=== PATIENT | male | born 1980 | race Caucasian/White ===

== ENCOUNTER 2018-10-14 19:53 | Emergency (ER) | payer SELFPAY ==
[~2018-10-14] VITALS: Ht 172.7 cm; Wt 65.0 kg
[~2018-10-14 19:53] MED LIST: ACET500C5 PO
[2018-10-14 19:55] VITALS: BP 133/94; Ht 172.7 cm; Wt 65.0 kg
--- NOTE | 2018-10-14 21:34 | ERD ---
ER Documentation Chief Complaint Chief Complaint DIZZINESS WITH CP AND PALPITATIONS X3DAYS; HPI This is a 38-year-old male patient who presents to the emergency room with complaint of intermittent dizziness, chest pain, heart palpitations x3 days. Denies fevers, no nausea, no vomiting, + sore throat. Patient does not smoke. States he was recently diagnosed with diabetes 2 weeks ago and placed on metformin and other unknown antidiabetic medication. States his diet is primarily bread, tortillas, sandwiches and admits to eating 3-4 times per day and taking his medications with food. He has appointment with his PMD, [facility] [place] tomorrow. Patient is alert, ambulatory, NAD at time of evaluation. ROS All systems reviewed and are negative except as per history of present illness. 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 Allergies Allergies: Coded Allergies: No Known Allergy (Unverified , 10/14/18) PMhx/Soc History of Surgery: No Anesthesia Reaction: No Hx Neurological Disorder: No Hx Respiratory Disorders: No Hx Cardiac Disorders: No Hx Psychiatric Problems: No Hx Miscellaneous Medical Probl: No Hx Alcohol Use: Yes Hx Substance Use: No Hx Tobacco Use: No Smoking Status: Never smoker FmHx Family History: diabetes; No coronary disease, No other Physical Exam Vitals Vital Signs Date Temp Pulse Resp B/P (MAP) Pulse Ox O2 O2 Flow FiO2 Time Delivery Rate 10/15/18 98.0 76 16 99 01:24 10/14/18 99.4 109 18 133/94 96 19:55 (107) Physical Exam Const: No acute distress Head: No bruising, no swelling, no hematoma, no crepitus Eyes: Normal Conjunctiva. PERRL, EOMI ENT: Normal External Ears, Nose and Mouth. Pharynx pink, moist, no oral injury. Neck: Full range of motion. No meningismus. No cervical spinal tenderness. No lymphadenopathy Resp: Clear to auscultation bilaterally, no rales, rhonchi. Chest rise equal bilaterally. Cardio: Regular rate and rhythm, no murmurs Abd: Soft, non tender, non distended. Normal bowel sounds. No bruising. Skin: No petechiae or rashes, no abrasions, no hematomas. Back: No midline or flank tenderness, no point tenderness to spine, FROM Ext: No cyanosis, or edema, no deformities Neur: Awake and alert, CN II-XII intact, steady gait, clear speech, no pronator drift, equal smile, BL piling setter 5/5, sensation intact BL, negative Romberg, negative [id number] test. Psych: Normal Mood and Affect Result Diagram: 10/14/18213610/14/182136 Results 24 hrs Laboratory Tests Test 10/14/18 21:37 White Blood Count 11.1 10^3/ul Red Blood Count 4.93 10^6/ul Hemoglobin 15.2 g/dl Hematocrit 44.3 % Mean Corpuscular Volume 89.9 fl Mean Corpuscular Hemoglobin 30.8 pg Mean Corpuscular Hemoglobin Concent 34.3 g/dl Red Cell Distribution Width 11.3 % Platelet Count 202 10^3/UL Mean Platelet Volume 12.2 fl Immature Granulocytes % 0.400 % Neutrophils % 78.5 % Lymphocytes % 13.8 % Monocytes % 5.9 % Eosinophils % 1.0 % Basophils % 0.4 % Nucleated Red Blood Cells % 0.0 /100WBC Immature Granulocytes # 0.040 10^3/ul Neutrophils # 8.7 10^3/ul Lymphocytes # 1.5 10^3/ul Monocytes # 0.7 10^3/ul Eosinophils # 0.1 10^3/ul Basophils # 0.0 10^3/ul Nucleated Red Blood Cells # 0.0 10^3/ul Urine Color YELLOW Urine Clarity CLEAR Urine pH 6.0 Urine Specific [place] 1.013 Urine Ketones NEGATIVE mg/dL Urine Nitrite NEGATIVE mg/dL Urine Bilirubin NEGATIVE mg/dL Urine Urobilinogen NEGATIVE mg/dL Urine Leukocyte Esterase NEGATIVE Otilia/ul Urine Hemoglobin NEGATIVE mg/dL Urine Glucose 2+ mg/dL Urine Total Protein NEGATIVE mg/dl Sodium Level 138 mmol/L Potassium Level 4.7 mmol/L Chloride Level 98 mmol/L Carbon Dioxide Level 30 mmol/L Anion Gap 10 Blood Urea Nitrogen 17 mg/dl Creatinine 0.67 mg/dl Est Glomerular Filtrat Rate mL/min > 60 mL/min Glucose Level 245 mg/dl Calcium Level 9.9 mg/dl Total Bilirubin 0.4 mg/dl Direct Bilirubin 0.00 mg/dl Indirect Bilirubin 0.4 mg/dl Aspartate Amino Transf (AST/SGOT) 20 IU/L Alanine Aminotransferase (ALT/SGPT) 26 IU/L Alkaline Phosphatase 77 IU/L Total Protein 7.9 g/dl Albumin 4.7 g/dl Globulin 3.20 g/dl Albumin/Globulin Ratio 1.46 Procedures/MDM PROCEDURES/MDM EKG: Read by Dr. Andre, attending physician. EKG shows sinus tach rhythm at a rate of 104 bpm No arrhythmias, acute ST elevations or T wave changes were noted. LAB INTERPRETATION: Slight leukocytosis, no electrolyte disturbance, normal kidney function, hyperglycemia, no transaminitis. Urine with + glucose, negative UTI. MDM: This is a 38-year-old male patient presents emergency room with complaints of intermittent dizziness, chest pain, palpitations occurring over 3 days. Patient denies chest pain at time of evaluation, states dizziness occurs occasionally and feels like a motion sickness sensation but is not experiencing it at time of evaluation or during ED course. Also denies heart palpitations at time of evaluation. Long discussion had with patient regarding his antidiabetic medications and that these new medications often have side effects including hypoglycemia if not taken with food. It was explained to patient that he must stay well-hydrated and there may be an adjustment. With his medications. Patient states he has appointment with his primary care doctor tomorrow and will discuss the possible side effects and doses of his antidiabetic medications. The patient is clinically well appearing and stable. Symptoms are not suggestive of cardiac ischemia, pulmonary embolus, aortic dissection, or other serious etiology. These diagnoses have been considered and excluded clinically and with additional diagnostic studies as indicated. Nonetheless, it is understood by both the patient and provider that no clinical or diagnostic assessment can entirely exclude such diseases. Chest pain precautions have been given and the patient has been advised to return for worsening symptoms or any concerns. DISPOSITION and PLAN: RX: Tylenol The patient has been discharge home to follow-up with community physician. Departure Diagnosis: Primary Impression: Dizziness Additional Impression: Tachycardia Condition: Stable Patient Instructions: Dizziness, Unk Cause CECILIA PRIEST NP Oct 14, 2018 21:34
[2018-10-15 01:24] VITALS: PULSE 76; RESP 16
== END 2018-10-15 01:26 | disposition home or self-care (01) ==
LOC: FTE 19:53
DX: R42 Dizziness and giddiness (principal); R00.0 Tachycardia, unspecified; E11.9 Type 2 diabetes mellitus without complications
CPT/HCPCS: 36415; 80053; 81003; 85025; 99283